=== PATIENT | male | born 1940 | race Caucasian/White ===

== ENCOUNTER 2017-02-12 14:21 | Emergency (ER) | payer OTHER ==
[~2017-02-12] VITALS: Ht 182.9 cm; Wt 63.5 kg
[~2017-02-12 14:21] MED LIST: CALC500T19 PO; CARV25TA2 PO; DOCU-67 PO; LORA10TA60 PO; LOSA25TA22 PO; NAPR500T1 PO; OMEP40EC1 PO; ROPI0.5T PO; SIN25100 PO; VITD1000 PO; [UNRECOGNIZED DRUG - OTHER] PO
--- NOTE | 2017-02-12 14:21 | NUR ---
Patient BIBA [facility] accompanied by family, transferred to bed 3. RN evaluating patient at bedside.
--- NOTE | 2017-02-12 14:25 | NUR ---
PATIENT BIBA FOR EVALUATION OF SOB . LEAD TELLER STATES PT WAS AT PCP OFFICE W/SPOUSE FOR APPT, BUT THEY WENT ON THE WRONG DAY, AND SPOUSE FELT PT NEEDED TO BE EVALUATED FOR SOB AND PERIODS OF APNEA . DENIES N/V/D; SKIN IS PINK/WARM/DRY; AAOX1, PT IS NONVERBAL; LUNGS DIMINISHED AT THE BASES BILATERALLY; HR EVEN AND REGULAR; PT DENIES ANY FEVER, CP, SOB, OR COUGH AT THIS TIME; PATIENT STATES PAIN OF 0/10 AT THIS TIME; VSS; PATIENT POSITIONED FOR COMFORT; HOB ELEVATED; BEDRAILS UP X2; BED DOWN. ER MD MADE AWARE OF PT STATUS.
[2017-02-12 14:34] VITALS: BP 132/87
--- NOTE | 2017-02-12 14:46 | NUR ---
Dr. Tinoco evaluating patient at bedside.
[2017-02-12] MEDS ORDERED: IPRATROPIUM 0.02% 0.5 MG/2.5 ML NEBU INH ONE (15:00)
[2017-02-12] MEDS ORDERED: ALBUTEROL 0.083% 2.5 MG/3 ML NEBU INH ONE (15:00)
--- NOTE | 2017-02-12 15:17 | NUR ---
Breathing treatment administered by respiratory therapist at bedside.
--- NOTE | 2017-02-12 15:24 | NUR ---
X-RAY AT BEDSIDE.
[2017-02-12 15:35] LABS: BASOPHILS # (AUTO) 0.3 K/uL (0.00-0.22); EOSINOPHILS # (AUTO) 0.2 K/uL (0-0.4); HEMATOCRIT 46.3 % (36-52); HEMOGLOBIN 15.6 g/dL (12.0-18.0); LYMPHOCYTES % (AUTO) 20.4 % (20.5-51.1); MEAN CORPUSCULAR HEMOGLOBIN 33 pg (27-31); MEAN CORPUSCULAR HGB CONC 34 g/dL (33-37); MEAN CORPUSCULAR VOLUME 98 fL (80-94); MONOCYTES # (AUTO) 0.4 K/uL (0.8-1.0); PLATELET COUNT (AUTO) 102 K/uL (140-450); RED BLOOD CELL COUNT(AUTO) 4.72 MIL/uL (4.20-6.10); WHITE BLOOD COUNT (AUTO) 4.9 K/uL (4.8-10.8)
--- NOTE | 2017-02-12 15:50 | NUR ---
PT RESTING QUIETLY ON GURNEY. SPOUSE AT BEDSIDE.
[2017-02-12 15:54] LABS: ALANINE AMINOTRANSFERASE 26 U/L (12-78); ALBUMIN 3.8 g/dL (3.4-5.0); ALKALINE PHOSPHATASE 156 U/L (46-116); ANION GAP 9.4 (8-16); ASPARTATE AMINOTRANSFERASE 23 U/L (15-37); CALCIUM 9.2 mg/dL (8.5-10.1); CARBON DIOXIDE 29.6 mmol/L (21-32); CHLORIDE 105 mmol/L (98-107); CREATININE 0.7 mg/dL (0.6-1.3); GLUCOSE 114 mg/dL (74-106); INR 1.1 (0.8-1.2); PARTIAL THROMBOPLASTIN TIME 28.9 secs (22-35.6); SODIUM SERUM 140 mmol/L (136-145); TOTAL BILIRUBIN 0.6 mg/dL (0.0-1.0); TOTAL PROTEIN, SERUM 7.7 g/dL (6.4-8.2); UREA NITROGEN, BLOOD 20 mg/dL (7-18)
[2017-02-12 16:01] LABS: LACTIC ACID 1.1 mmol/L (0.4-2.0)
--- NOTE | 2017-02-12 16:16 | NUR ---
Kevan AT BEDSIDE.
--- NOTE | 2017-02-12 16:44 | NUR ---
PT RESTING QUIETLY ON GURNEY. CONTACTING INSURANCE TO ARRANGE TRANSPORTION HOME AFTER DISCHARGE.
--- NOTE | 2017-02-12 17:15 | NUR ---
PT RESTING QUIETLY ON [place]UR[place] DALE.
--- NOTE | 2017-02-12 17:21 | NUR ---
RN AND EMT AT BEDSIDE ASSISTING SPOUSE W/PERSONAL CARES.
--- NOTE | 2017-02-12 17:50 | NUR ---
Kevan AT BEDSIDE.
[2017-02-12 18:44] VITALS: BP 101/55
--- NOTE | 2017-02-12 18:44 | NUR ---
Patient discharged with v/s stable. Written and verbal after care instructions given and explained. Patient alert, oriented and verbalized understanding of instructions. Wheel Chair Assisted with by caregiver. All questions addressed prior to discharge. ID band removed. Patient advised to follow up with PMD. Rx of ORAPRED given. Patient educated on indication of medication including possible reaction and side effects. Opportunity to ask questions provided and answered.
== END 2017-02-12 18:44 | disposition home or self-care (01) ==
LOC: MED 14:21
DX: J44.1 Chronic obstructive pulmonary disease with (acute) exacerbation (principal); I10 Essential (primary) hypertension; G20 Parkinson's disease; F02.80 Dementia in other diseases classified elsewhere, unspecified severity, without behavioral disturbance, psychotic disturbance, mood disturbance, and anxiety
CPT/HCPCS: 36415; 71010; 80053; 83605; 83880; 84484; 85025; 85610; 85730; 87040; 93005; 94640; 99285; J7613; J7644; Q0092